=== PATIENT | female | born 1990 | race Caucasian/White ===

== ENCOUNTER 2017-08-10 19:11 | Emergency (ER) | payer BC, OTHER ==
[~2017-08-10] VITALS: Ht 170.2 cm; Wt 84.6 kg
[~2017-08-10 19:11] MED LIST: CLIN150 PO
[2017-08-10 19:19] VITALS: BP 148/74; PULSE 113; RESP 18; TEMP 98.8; O2SAT 98
[2017-08-10] MEDS ORDERED: SODIUM CHLOR 0.9% 1000 ML INJ 1,000 ML IV SCH (19:29)
[2017-08-10] MEDS ORDERED: ONDANSETRON HCL 4 MG/2 ML VIAL IVP ONE (19:30)
--- NOTE | 2017-08-10 19:33 | PD ---
HPI Chief Complaint: GI Complaint Time Seen by Provider: 19:29 Travel History International Travel<30 days: No Contact w/Intl Traveler<30days: No Traveled to known affect area: No History of Present Illness HPI C/O 3 DAYS WORTH OF N/V/D AND CRAMPY ABD PAIN, NONRAD, 5/10, WORSE WITH EATING, MILDLY IMPROVED WHEN ABSTAINING FROM EATING OR DRINKING. PATIENT DENIES FEVER/ COUGH/CP/BACK PAIN ALL:NONE PSHX: ORTHOPEDIC LEFT KNEE SURG PMHX: DENIES PFSH Past Medical History Medical History: Denies Significant Hx Diminished Hearing: No Musculoskeletal: Yes (KNEE SURGURY) Immunizations Current: Yes Tetanus Vaccination: Unknown Influenza Vaccination: No ?: Not LMP: just finished on Saturday : 0 Ovarian Cysts: Yes Social History Alcohol Use: Yes ("SOMETIMES") Tobacco Use: Yes (1 PPD) Substance Use: No Allergies-Medications (Allergen,Severity, Reaction): Coded Allergies: No Known Allergies (Verified Adverse Reaction, Unknown, 08/10/17) Reported Meds & Prescriptions Reported Meds & Active Scripts Active Macrobid (Nitrofurantoin Monoh/Nitrofur Macro) 100 Mg Cap 100 Mg PO BID 5 Days Zofran Odt (Ondansetron Odt) 4 Mg Tab 4 Mg SL Q6HR PRN Review of Systems Except as stated in HPI: all other systems reviewed are Neg General / Constitutional: No: Fever Eyes: No: Visual changes HENT: No: Headaches Cardiovascular: No: Chest Pain or Discomfort Respiratory: No: Shortness of Breath Gastrointestinal: Positive: Nausea, Vomiting, Diarrhea Genitourinary: No: Dysuria Musculoskeletal: No: Pain Skin: No Rash Neurologic: No: Weakness Psychiatric: No: Depression Endocrine: No: Polydipsia Hematologic/Lymphatic: No: Easy Bruising Physical Exam Narrative GENERAL: SKIN: Warm and dry. HEAD: Atraumatic. Normocephalic. EYES: Pupils equal and round. No scleral icterus. No injection or drainage. ENT: No nasal bleeding or discharge. Mucous membranes pink and moist. NECK: Trachea midline. No JVD. CARDIOVASCULAR: Regular rate and rhythm. RESPIRATORY: No accessory muscle use. Clear to auscultation. Breath sounds equal bilaterally. GASTROINTESTINAL: Abdomen soft, non-tender, nondistended. MUSCULOSKELETAL: Extremities without clubbing, cyanosis, or edema. No obvious deformities. NEUROLOGICAL: Awake and alert. No obvious cranial nerve deficits. Motor grossly within normal limits. Five out of 5 muscle strength in the arms and legs. Normal speech. PSYCHIATRIC: Appropriate mood and affect; insight and judgment normal. Data Data Last Documented VS Vital Signs Date Time Temp Pulse Resp B/P (MAP) Pulse Ox O2 Delivery O2 Flow Rate FiO2 08/10/17 19:46 98 Room Air 08/10/17 19:19 98.8 113 18 148/74 (98) Orders Orders Complete Blood Count With Diff (08/10/17 19:29) Comprehensive Metabolic Panel (08/10/17 19:29) Lipase (08/10/17 19:29) Urinalysis - C+S If Indicated (08/10/17 19:29) Abdomen, Flat & Upright (08/10/17 ) Iv Access Insert/Monitor (08/10/17 19:29) Ecg Monitoring (08/10/17 19:29) Oximetry (08/10/17 19:29) NPO (08/10/17 19:29) Ondansetron Inj (Zofran Inj) (08/10/17 19:30) Sodium Chlor 0.9% 1000 Ml Inj (Ns 1000 M (08/10/17 19:29) Ed Urine Pregnancytest Poc (08/10/17 19:29) Urine Culture (08/10/17 19:38) Ed Discharge Order (08/10/17 20:09) Labs Laboratory Tests Test 08/10/17 19:38 White Blood Count 10.4 TH/MM3 Red Blood Count 4.87 MIL/MM3 Hemoglobin 15.1 GM/DL Hematocrit 45.2 % Mean Corpuscular Volume 92.8 FL Mean Corpuscular Hemoglobin 31.1 PG Mean Corpuscular Hemoglobin Concent 33.5 % Red Cell Distribution Width 13.2 % Platelet Count 320 TH/MM3 Mean Platelet Volume 9.2 FL Neutrophils (%) (Auto) 63.8 % Lymphocytes (%) (Auto) 19.5 % Monocytes (%) (Auto) 8.9 % Eosinophils (%) (Auto) 3.2 % Basophils (%) (Auto) 4.6 % Neutrophils # (Auto) 6.7 TH/MM3 Lymphocytes # (Auto) 2.0 TH/MM3 Monocytes # (Auto) 0.9 TH/MM3 Eosinophils # (Auto) 0.3 TH/MM3 Basophils # (Auto) 0.5 TH/MM3 CBC Comment DIFF FINAL Differential Comment Urine Color YELLOW Urine Turbidity CLOUDY Urine pH 6.0 Urine Specific [place] 1.027 Urine Protein NEG mg/dL Urine Glucose (UA) NEG mg/dL Urine Ketones TRACE mg/dL Urine Occult Blood NEG Urine Nitrite NEG Urine Bilirubin NEG Urine Leukocyte Esterase NEG Urine RBC 0-2 /hpf Urine WBC 0-2 /hpf Urine Squamous Epithelial Cells > 8 /hpf Urine Bacteria MOD /hpf Microscopic Urinalysis Comment CULTURE INDICATED Blood Urea Nitrogen 14 MG/DL Creatinine 1.10 MG/DL Random Glucose 101 MG/DL Total Protein 8.2 GM/DL Albumin 3.7 GM/DL Calcium Level 8.8 MG/DL Alkaline Phosphatase 113 U/L Aspartate Amino Transf (AST/SGOT) 20 U/L Alanine Aminotransferase (ALT/SGPT) 32 U/L Total Bilirubin 0.2 MG/DL Sodium Level 134 MEQ/L Potassium Level 3.8 MEQ/L Chloride Level 97 MEQ/L Carbon Dioxide Level 25.8 MEQ/L Anion Gap 11 MEQ/L Estimat Glomerular Filtration Rate 60 ML/MIN Lipase 85 U/L [facility] Medical Decision Making Medical Screen Exam Complete: Yes Emergency Medical Condition: Yes Medical Record Reviewed: Yes Differential Diagnosis GASTROENTERITIS V DEHYDRATION V PANCREATITIS Narrative Course ON REVIEW OF UA C/W UTI, LIPASE AND ELECTROLYTES WERE WNL Diagnosis Primary Impression: RESOLVING GASTROENTERITIS Additional Impression: UTI Patient Instructions: Gastroenteritis (ED), General Instructions, Urinary Tract Infection in Women (ED) Scripts Nitrofurantoin Monohydrate Macrocrystals (Macrobid) 100 Mg Cap 100 MG PO BID for Infection for 5 Days, #10 CAP 0 Refills Prov: Son Mike MD 08/10/17 Ondansetron Odt (Zofran Odt) 4 Mg Tab 4 MG SL Q6HR Y for Nausea/Vomiting, #20 TAB 0 Refills Prov: Son Mike MD 08/10/17 Disposition: 01 DISCHARGE HOME Condition: Stable Son Mike MD Aug 10, 2017 19:33
[2017-08-10 19:46] VITALS: O2SAT 98
[2017-08-10 19:55] LABS: BLOOD, URINE NEG (NEG); GLUCOSE,URINE NEG (NEG); KETONE, URINE TRACE mg/dL (NEG); NITRITE,URINE NEG (NEG)
[2017-08-10 19:56] LABS: AUTOMATED NEUTROPHIL # 6.7 TH/MM3 (1.8-7.7); BASOPHIL # 0.5 TH/MM3 (0-0.2); BASOPHIL % 4.6 % (0.0-2.0); EOSINOPHIL # 0.3 TH/MM3 (0-0.4); EOSINOPHIL % 3.2 % (0.0-4.0); HEMATOCRIT 45.2 % (35.0-46.0); HEMO FLAGS DIFF FINAL; LYMPH % 19.5 % (9.0-44.0); MEAN CELL VOLUME 92.8 FL (80.0-100.0); MEAN CORPUSCULAR HEMOGLOBIN 31.1 PG (27.0-34.0); MEAN CORPUSCULAR HGB CONC 33.5 % (32.0-36.0); MONO % 8.9 % (0.0-8.0); NEUT % 63.8 % (16.0-70.0); PLATELET COUNT 320 TH/MM3 (150-450); RED BLOOD COUNT 4.87 MIL/MM3 (4.00-5.30); RED CELL DISTRIBUTION WIDTH 13.2 % (11.6-17.2); URINE COLOR YELLOW (YELLW/STRAW); WHITE BLOOD COUNT 10.4 TH/MM3 (4.0-11.0)
[2017-08-10 19:59] LABS: WBC, URINE 0-2 /hpf (0-5)
[2017-08-10 20:00] LABS: BACTERIA, URINE MOD /hpf; COMMENT (UR) CULTURE INDICATED; CULTURE IF INDICATED CULTURE INDICATED; RBC, URINE 0-2 /hpf (0-3); SQUAMOUS EPITHELIAL CELL URINE > 8 /hpf (0-5)
[2017-08-10 20:02] LABS: CHLORIDE 97 MEQ/L (98-107); POTASSIUM 3.8 MEQ/L (3.5-5.1); SODIUM (NA) 134 MEQ/L (136-145)
[2017-08-10 20:06] LABS: ANION GAP 11 MEQ/L (5-15); BICARBONATE 25.8 MEQ/L (21.0-32.0); BLOOD UREA NITROGEN 14 MG/DL (7-18)
[2017-08-10] MEDS ORDERED: MACR100C2 PO (20:07)
[2017-08-10] MEDS ORDERED: ZOFR4TAB3 SL (20:07)
[2017-08-10 20:09] LABS: ALT (GPT) 32 U/L (10-53); AST (GOT) 20 U/L (15-37); GLOMERULAR FILTRATION RATE 60 ML/MIN (>89)
--- NOTE | 2017-08-10 20:09 | RADRPT ---
EXAM DATE/TIME: 08/10/2017 19:49 [place] COMPARISON: No previous studies available for comparison. INDICATIONS : Nausea. Abdominal discomfort. MEDICAL HISTORY : None. SURGICAL HISTORY : None. ENCOUNTER: Initial ACUITY: 2 days PAIN SCORE: 6/10 LOCATION: Bilateral lower quadrant FINDINGS: Supine and upright views of the abdomen were performed. The abdominal bowel gas pattern is normal. No air fluid levels are seen. No abnormal masses, calcifications, or organomegaly is seen. The visu alized lower lungs are clear. No evidence of free intraperitoneal gas. The osseous structures are u nremarkable. Metallic umbilical jewelry. CONCLUSION: Benign abdomen. Nestor Campos MD on August 10, 2017 at 20:06 Board Certified Radiologist. This report was verified electronically.
[2017-08-10 20:10] LABS: TOTAL BILIRUBIN ADULT 0.2 MG/DL (0.2-1.0)
[2017-08-10 20:12] LABS: ALKALINE PHOSPHATASE 113 U/L (45-117)
[2017-08-10 20:35] VITALS: BP 138/78
== END 2017-08-10 20:36 | disposition home or self-care (01) ==
LOC: PHED 19:11
DX: K52.9 Noninfective gastroenteritis and colitis, unspecified (principal); N39.0 Urinary tract infection, site not specified; F17.210 Nicotine dependence, cigarettes, uncomplicated
CPT/HCPCS: 74020; 80053; 81001; 83690; 84703; 85025; 87086; 96361; 96374; 99284; J2405; J7030